=== PATIENT | female | born 1980 | race Caucasian/White ===

== ENCOUNTER 2018-05-21 20:47 | Emergency (ER) | payer MEDICAID, SELFPAY ==
[2018-05-21 20:49] VITALS: BP 186/116; PULSE 99; RESP 18; TEMP 36.8; O2SAT 98; BMI 54.7
--- NOTE | 2018-05-21 22:09 | NURSING ---
AFTER COLLECTING LABS AND COMPLETING MED LIST IN COMPUTER TOOK OVER ROLE SITTER
[2018-05-21 22:13] LABS: Absolute Lymphocyte Count 2.86 X10^3/ul (0.83-4.51); Absolute Neutrophil Count 7.6 X10^3/uL (2.0-7.7); Basophil# 0.02 X10^3/uL; Basophil% 0.2 % (0-1); Differential Indicated SCAN CRITERIA MET; Eosinophil# 0.16 X10^3/uL; Eosinophils% 1.4 % (0-5); Hematocrit 37.5 % (37-47); Hemoglobin 12.7 g/dl (12.0-15.0); Lymphocyte # 2.86 X10^3/ul (4.0); Lymphocyte % 25.2 % (19-41); Mean Corp Hgb Conc 33.9 g/gl (32-36); Mean Corpuscular Volume 88.4 fL (81-99); Mean Platelet Vol. 9.8 fl (6.2-12.0); Monocyte# 0.66 X10^3/uL; Monocyte% 5.8 % (0-10); Neutrophil % 67.1 % (47-70); POSITIVE COUNT NO; POSITIVE DIFFERENTIAL NO; POSITIVE MORPHOLOGY YES; Platelet Count 352 K/mm3 (150-450); RBC Distribution Width SD 45.7 fl (35.1-43.9); Red Blood Count 4.24 M/mm3 (4.2-5.4); White Blood Count 11.3 K/mm3 (4.4-11.0)
[2018-05-21 22:16] VITALS: RESP 17
[2018-05-21 22:29] LABS: ALB/GLOB Ratio 0.9 RATIO (0.9-2.4); AST(SGOT) 12 U/L (15-37); Alanine Aminotransfer ALT/SGPT 23 U/L (13-56); Albumin, Serum 3.6 g/dL (3.2-5.0); Alkaline Phosphatase 74 U/L (45-117); Anion Gap 8 (5-15); BUN 13 mg/dL (7-18); Calcium,Total 8.4 mg/dL (8.5-10.1); Chloride 110 mmol/L (98-107); EST Glomerular Filtration Rate 66 mL/min (>60); Est Glom Filt Rate - Afr Amer 80 mL/min (>60); Globulin 3.9 g/dL (2.2-4.2); Glucose 87 mg/dL (74-106); Potassium 3.4 mmol/L (3.5-5.1); Protein, Total 7.5 g/dL (6.4-8.2); Sodium Level 141 mmol/L (136-145)
[2018-05-21 22:30] LABS: Pregnancy, Serum, hCG Quali. NEGATIVE Negative (0-9 Nonpreg)
[2018-05-21] MEDS: HYDROCHLOROTHIAZIDE 12.5 MG CAPSULE PO (22:40)
[2018-05-21] MEDS: Losartan Potassium 50 MG Tablet PO (22:40)
[2018-05-21 22:43] LABS: Differential Comment SCANNED
[2018-05-21 23:13] LABS: Amphetamine Urine VISTA NEGATIVE (<1000 ng/mL); Barbiturate Urine VISTA NEGATIVE (< 200 ng/mL); Benzodiazepine Urine VISTA NEGATIVE (< 200 ng/mL); Cocaine Urine VISTA NEGATIVE (< 300 ng/mL); Ecstacy Urine VISTA POSITIVE (< 500 ng/mL); Methadone Urine VISTA NEGATIVE (< 300 ng/mL); PCP Urine VISTA NEGATIVE (< 25 ng/mL); THC Urine VISTA NEGATIVE (< 50 ng/mL); Vista UDS pH Range 6
--- NOTE | 2018-05-21 23:29 | ED.VISSUMM ---
- ER Visit Summary Date of Service: 05/21/18 Chief Complaint: Suicidal ideation History of Present Illness: The patient is a 37 F who presents for suicidal ideation. She was sent in by her counselor for suicidal ideation. Patient has been having suicidal thoughts for a while and the plan to crash her car. She has had decreased sleeping. She states her medications are working. She has a prior attempt at age 11 when she slit her wrists. She was at [facility] hospitalized twice last year. She denies any fever, chest pain, shortness of breath, abdominal pain, nausea or vomiting or other complaints. She states she is done nothing today to try and hurt herself. Physical Examination: Vital signs: afebrile, hemodynamically stable, no hypoxia on room air General: well nourished, well developed, in no distress Skin: warm, dry, no rash, no pallor HEENT: normocephalic and atraumatic; PERRL, EOMI, moist mucous membranes Cardiovascular: regular rate and rhythm without murmurs, no peripheral edema, 2+ pulses all distal extremities Respiratory: No increased work of breathing, lungs are clear to auscultation bilaterally, no rales, rhonchi or wheezing Abdominal: Abdomen is soft, nontender with normoactive bowel sounds, no guarding or rebound, no masses MSK: Moves all extremities, no deformities, normal strength Neuro: Awake and alert, oriented ?4. No facial droop, sensation and motor function intact and symmetric Psych: Positive for suicidal ideation, normal stable appropriate affect, normal speech pattern, depressed affect Test Results: Abnormal Lab Results 05/21/18 05/21/18 05/21/18 21:53 21:53 21:53 WBC 11.3 H RBC 4.24 Hgb 12.7 Hct 37.5 MCV 88.4 MCH 30.0 MCHC 33.9 RDW 14.0 RDW Differential 45.7 H Plt Count 352 MPV 9.8 Immature Gran % (Auto) 0.300 Neut % (Auto) 67.1 Lymph % (Auto) 25.2 Rich % (Auto) 5.8 Eos % (Auto) 1.4 Baso % (Auto) 0.2 Absolute Neuts (auto) 7.6 Absolute Lymphs (auto) 2.86 Total Counted Not Reportable Differential Comment SCANNED Sodium 141 Potassium 3.4 L Chloride 110 H Carbon Dioxide 23.0 Anion Gap 8 BUN 13 Creatinine 1.00 Estim Creat Clear Calc 80.50 Est GFR (MDRD) Af Amer 80 Est GFR (MDRD) Non-Af 66 BUN/Creatinine Ratio 13.0 Glucose 87 Calcium 8.4 L Total Bilirubin 0.20 AST 12 L ALT 23 Alkaline Phosphatase 74 Total Protein 7.5 Albumin 3.6 Globulin 3.9 Albumin/Globulin Ratio 0.9 Serum , Qual Urine Opiates Screen Urine Methadone Screen Ur Barbiturates Screen Ur Phencyclidine Scrn Ur Amphetamines Screen U Methamphetamin-MDMA U Benzodiazepines Scrn Urine Cocaine Screen U Cannabinoids Screen Ur Drug Screen Comment Ethyl Alcohol 7.0 05/21/18 05/21/18 21:53 22:45 WBC RBC Hgb Hct MCV MCH MCHC RDW RDW Differential Plt Count MPV Immature Gran % (Auto) Neut % (Auto) Lymph % (Auto) Rich % (Auto) Eos % (Auto) Baso % (Auto) Absolute Neuts (auto) Absolute Lymphs (auto) Total Counted Differential Comment Sodium Potassium Chloride Carbon Dioxide Anion Gap BUN Creatinine Estim Creat Clear Calc Est GFR (MDRD) Af Amer Est GFR (MDRD) Non-Af BUN/Creatinine Ratio Glucose Calcium Total Bilirubin AST ALT Alkaline Phosphatase Total Protein Albumin Globulin Albumin/Globulin Ratio Serum , Qual NEGATIVE Urine Opiates Screen NEGATIVE Urine Methadone Screen NEGATIVE Ur Barbiturates Screen NEGATIVE Ur Phencyclidine Scrn NEGATIVE Ur Amphetamines Screen NEGATIVE U Methamphetamin-MDMA POSITIVE H U Benzodiazepines Scrn NEGATIVE Urine Cocaine Screen NEGATIVE U Cannabinoids Screen NEGATIVE Ur Drug Screen Comment Ethyl Alcohol Medications Given Discontinued Medications Hydrochlorothiazide (Hydrochlorothiazide) 12.5 mg PO X1 ONE Stop: 05/21/18 22:46 Last Admin: 05/21/18 22:40 Dose: 12.5 mg Losartan Potassium (Cozaar) 50 mg PO X1 ONE Stop: 05/21/18 22:46 Last Admin: 05/21/18 22:40 Dose: 50 mg Emergency Department Course and Treatment: Medical screening exam was performed. It was remarkable only for positive methamphetamine/MDMA and patient's system. Patient has not had any of her medications today. She was given her blood pressure medications. Patient will be evaluated by the crisis counselor and will require placement for inpatient evaluation and management of her suicidal ideation. Final disposition will be pending crisis counselor recommendations and placement. Treatment Plan: [] Disposition: [] Impression: Suicidal ideation This note was generated with [employer] dictation software. It may contain incorrect words, spelling, and punctuation that were not noted in review of the chart prior to signing ED Disposition - Plan for ED Patient: Chief Complaint: Suicidal Referrals: Radhames Virk DO [Primary Care Provider] -
[2018-05-22 00:09] VITALS: BP 146/100; PULSE 86; RESP 16; O2SAT 96
[2018-05-22] MEDS: Topiramate 25 MG Tablet 75 MG PO (01:31)
[2018-05-22] MEDS: QUEtiapine 100 MG Tablet 300 MG PO (01:32)
[2018-05-22] MEDS: Haloperidol 1 MG Tablet PO ×2 (01:34→07:39)
[2018-05-22] MEDS: OXcarbazepine 600 MG Tablet PO (01:35)
[2018-05-22] MEDS: Clonidine HCl 0.1 MG, Clonidine HCl 0.2 MG 0.3 MG PO (01:37)
[2018-05-22 03:00] VITALS: BP 117/73; PULSE 99; RESP 16; O2SAT 95
[2018-05-22 06:59] VITALS: RESP 14
--- NOTE | 2018-05-22 07:21 | NURSING ---
CALLED [facility] FOR TRANSPORT. ETA 20 MIN
[2018-05-22] MEDS: Losartan Potassium 50 MG Tablet PO (07:38)
[2018-05-22] MEDS: DULoxetine Hcl 30 MG Capsule PO (07:38)
[2018-05-22] MEDS: buPROPion (XL) 300 MG TABLET.XL PO (07:39)
[2018-05-22] MEDS: Levothyroxine 50 MCG Tablet PO (07:39)
[2018-05-22] MEDS: HYDROCHLOROTHIAZIDE 12.5 MG CAPSULE PO (07:39)
[2018-05-22] MEDS: Pantoprazole Sodium 40 MG Tablet PO (07:39)
[2018-05-22 07:51] VITALS: BP 156/85; PULSE 87; RESP 17; O2SAT 97
[2018-05-22 08:14] VITALS: BP 156/85; PULSE 87; RESP 17; O2SAT 97
== END 2018-05-22 08:08 ==
PROVIDERS: Emergency Provider Emergency Medicine; Family Provider Preventive Medicine Occupational Medicine; PCP Preventive Medicine Occupational Medicine
DX: R45.851 Suicidal ideations (principal); I10 Essential (primary) hypertension; E03.9 Hypothyroidism, unspecified; E66.9 Obesity, unspecified; Z91.5 Personal history of self-harm; Z79.899 Other long term (current) drug therapy
CPT/HCPCS: 80053; 80307; 80320; 84703; 85025; 99285; G0480